=== PATIENT | female | born 1980 | race African-American/Black ===

== ENCOUNTER 2017-05-22 14:06 | Emergency (ER) | payer MEDICAID, OTHER ==
[~2017-05-22] VITALS: Ht 157.5 cm; Wt 82.0 kg
[~2017-05-22 14:06] MED LIST: BACT800T5 PO; NAPR-576 PO
[2017-05-22 14:08] VITALS: BP 135/86; PULSE 82; RESP 16; TEMP 99.3; O2SAT 97
[2017-05-22] MEDS ORDERED: SODIUM CHLORIDE 0.9% FLUSH 10 ML FLUSH IV FLUSH PRN (15:30)
[2017-05-22] MEDS ORDERED: ONDANSETRON HCL 4 MG/2 ML VIAL IVP ONE (15:30)
[2017-05-22] MEDS ORDERED: SODIUM CHLOR 0.9% 1000 ML INJ 1,000 ML IV SCH (15:30)
[2017-05-22] MEDS ORDERED: DICYCLOMINE HCL 20 MG TAB PO ONE (15:30)
[2017-05-22 15:48] VITALS: RESP 16; O2SAT 100
[2017-05-22 16:03] LABS: BLOOD, URINE NEG (NEG); COMMENT (UR) CULT NOT INDICATED; CULTURE IF INDICATED CULT NOT INDICATED; GLUCOSE,URINE NEG (NEG); KETONE, URINE NEG (NEG); NITRITE,URINE NEG (NEG); SQUAMOUS EPITHELIAL CELL URINE 1 /hpf (0-5); URINE COLOR YELLOW (YELLW/STRAW)
[2017-05-22 16:14] LABS: AUTOMATED NEUTROPHIL # 3.8 TH/MM3 (1.8-7.7); BASOPHIL % 0.3 % (0.0-2.0); EOSINOPHIL # 0.1 TH/MM3 (0-0.4); EOSINOPHIL % 1.8 % (0.0-4.0); HEMATOCRIT 39.9 % (35.0-46.0); HEMO FLAGS DIFF FINAL; LYMPH % 38.9 % (9.0-44.0); LYMPHOCYTE # 2.7 TH/MM3 (1.0-4.8); MEAN CELL VOLUME 92.2 FL (80.0-100.0); MEAN CORPUSCULAR HEMOGLOBIN 31.6 PG (27.0-34.0); MEAN CORPUSCULAR HGB CONC 34.3 % (32.0-36.0); MONO % 5.3 % (0.0-8.0); NEUT % 53.7 % (16.0-70.0); PLATELET COUNT 147 TH/MM3 (150-450); RED BLOOD COUNT 4.33 MIL/MM3 (4.00-5.30); RED CELL DISTRIBUTION WIDTH 12.4 % (11.6-17.2); WHITE BLOOD COUNT 7.1 TH/MM3 (4.0-11.0)
[2017-05-22 16:20] LABS: ALKALINE PHOSPHATASE 41 U/L (45-117); ALT (GPT) 24 U/L (10-53); ANION GAP 9 MEQ/L (5-15); AST (GOT) 18 U/L (15-37); BICARBONATE 21.4 MEQ/L (21.0-32.0); BLOOD UREA NITROGEN 10 MG/DL (7-18); CHLORIDE 107 MEQ/L (98-107); GLOMERULAR FILTRATION RATE 123 ML/MIN (>89); POTASSIUM 3.5 MEQ/L (3.5-5.1); SODIUM (NA) 137 MEQ/L (136-145); TOTAL BILIRUBIN ADULT 0.2 MG/DL (0.2-1.0)
[2017-05-22] MEDS ORDERED: SE-NCHW CHEW (16:20)
--- NOTE | 2017-05-22 16:21 | PD ---
HPI Chief Complaint: Abdominal Pain Time Seen by Provider: 15:12 Travel History International Travel<30 days: No Contact w/Intl Traveler<30days: No Traveled to known affect area: No History of Present Illness HPI 36-year-old female complains of dizziness, headache, low back pain, nausea vomiting for the past several days. Symptoms are intermittent. Last menstruation was about 7 weeks prior. She's had no vaginal bleeding or vaginal discharge. Severity moderate. No fever. PFSH Past Medical History Depression: Yes Diabetes: Yes (gestational diabetes ) Diminished Hearing: No Gastrointestinal Disorders: Yes (STS ABD HERNIA) Headaches: Yes Inguinal Hernia: Yes Immunizations Current: Yes ?: Not LMP: 04/05/17 Menopausal: No Past Surgical History Appendectomy: Yes Social History Alcohol Use: Yes Tobacco Use: No (smoked until she found out she was , 3 cig/day for 10 yrs) Substance Use: No Allergies-Medications (Allergen,Severity, Reaction): Coded Allergies: No Known Allergies (Verified , 12/29/15) Reported Meds & Prescriptions Reported Meds & Active Scripts Active Se-Lacho 19 29-1 mg Chew ( Vit W/ Ferrous Fumara Chew) 1 Chew 1 Tab CHEW DAILY Bactrim DS (Sulfamethoxazole-Trimethoprim DS) 1 Tab Tab 1 Tab PO Q12 7 Days Naproxen 500 Mg Tab 500 Mg PO Q12HR PRN Review of Systems Except as stated in HPI: all other systems reviewed are Neg General / Constitutional: No: Fever Gastrointestinal: Positive: Nausea, Vomiting, Abdominal Pain Physical Exam Narrative GENERAL: 36 yo F, WNWD, NAD SKIN: Warm and dry. HEAD: Atraumatic. Normocephalic. EYES: Pupils equal and round. No scleral icterus. No injection or drainage. ENT: No nasal bleeding or discharge. Mucous membranes pink and moist. NECK: Trachea midline. No JVD. CARDIOVASCULAR: Regular rate and rhythm. RESPIRATORY: No accessory muscle use. Clear to auscultation. Breath sounds equal bilaterally. GASTROINTESTINAL: Abdomen soft, non-tender, nondistended. Hepatic and splenic margins not palpable. MUSCULOSKELETAL: Extremities without clubbing, cyanosis, or edema. No obvious deformities. NEUROLOGICAL: Awake and alert. No obvious cranial nerve deficits. Motor grossly within normal limits. Five out of 5 muscle strength in the arms and legs. Normal speech. PSYCHIATRIC: Appropriate mood and affect; insight and judgment normal. Data Data Last Documented VS Vital Signs Date Time Temp Pulse Resp B/P (MAP) Pulse Ox O2 Delivery O2 Flow Rate FiO2 05/22/17 17:19 05/22/17 15:48 16 100 Room Air 05/22/17 14:08 99.3 82 Orders Orders Complete Blood Count With Diff (05/22/17 15:30) Comprehensive Metabolic Panel (05/22/17 15:30) Lipase (05/22/17 15:30) Urinalysis - C+S If Indicated (05/22/17 15:30) Iv Access Insert/Monitor (05/22/17 15:30) Ecg Monitoring (05/22/17 15:30) Oximetry (05/22/17 15:30) Ondansetron Inj (Zofran Inj) (05/22/17 15:30) Sodium Chlor 0.9% 1000 Ml Inj (Ns 1000 M (05/22/17 15:30) Sodium Chloride 0.9% Flush (Ns Flush) (05/22/17 15:30) Ed Urine Pregnancytest Poc (05/22/17 15:30) Dicyclomine (Bentyl) (05/22/17 15:30) Beta Hcg (Quant/Titer) (05/22/17 15:40) Labs Laboratory Tests Test 05/22/17 15:40 White Blood Count 7.1 TH/MM3 Red Blood Count 4.33 MIL/MM3 Hemoglobin 13.7 GM/DL Hematocrit 39.9 % Mean Corpuscular Volume 92.2 FL Mean Corpuscular Hemoglobin 31.6 PG Mean Corpuscular Hemoglobin Concent 34.3 % Red Cell Distribution Width 12.4 % Platelet Count 147 TH/MM3 Mean Platelet Volume 9.1 FL Neutrophils (%) (Auto) 53.7 % Lymphocytes (%) (Auto) 38.9 % Monocytes (%) (Auto) 5.3 % Eosinophils (%) (Auto) 1.8 % Basophils (%) (Auto) 0.3 % Neutrophils # (Auto) 3.8 TH/MM3 Lymphocytes # (Auto) 2.7 TH/MM3 Monocytes # (Auto) 0.4 TH/MM3 Eosinophils # (Auto) 0.1 TH/MM3 Basophils # (Auto) 0.0 TH/MM3 CBC Comment DIFF FINAL Differential Comment Urine Color YELLOW Urine Turbidity CLEAR Urine pH 6.0 Urine Specific [place] 1.025 Urine Protein NEG mg/dL Urine Glucose (UA) NEG mg/dL Urine Ketones NEG mg/dL Urine Occult Blood NEG Urine Nitrite NEG Urine Bilirubin NEG Urine Urobilinogen LESS THAN 2.0 MG/DL Urine Leukocyte Esterase NEG Urine WBC 1 /hpf Urine Squamous Epithelial Cells 1 /hpf Microscopic Urinalysis Comment CULT NOT INDICATED Blood Urea Nitrogen 10 MG/DL Creatinine 0.66 MG/DL Random Glucose 105 MG/DL Total Protein 6.7 GM/DL Albumin 3.6 GM/DL Calcium Level 8.8 MG/DL Alkaline Phosphatase 41 U/L Aspartate Amino Transf (AST/SGOT) 18 U/L Alanine Aminotransferase (ALT/SGPT) 24 U/L Total Bilirubin 0.2 MG/DL Sodium Level 137 MEQ/L Potassium Level 3.5 MEQ/L Chloride Level 107 MEQ/L Carbon Dioxide Level 21.4 MEQ/L Anion Gap 9 MEQ/L Estimat Glomerular Filtration Rate 123 ML/MIN Lipase 146 U/L Human Chorionic Gonadotropin, Quant 2037 MIU/ML [facility] Medical Decision Making Medical Screen Exam Complete: Yes Emergency Medical Condition: Yes Differential Diagnosis IUP, UTI, ectopic , ov torsion, appendicitis, TOA, cervicitis, BV, Trichomoniasis, ov cyst, hernia, mittelschmerz, pain from menstruation Narrative Course CBC & BMP Diagram 05/22/17 15:40 Total Protein 6.7, Albumin 3.6, Calcium Level 8.8, Alkaline Phosphatase 41 L, Aspartate Amino Transf (AST/SGOT) 18, Alanine Aminotransferase (ALT/SGPT) 24, Total Bilirubin 0.2 HCG 2036 UA: No uti Pt has obstetrics follow up Pt ready for discharge Diagnosis Primary Impression: Qualified Codes: Z34.90 - Encounter for supervision of normal , unspecified, unspecified trimester Referrals: Es Skinner MD Med/Other Pt SpecificInfo: Prescription(s) given Scripts Vit W/ Ferrous Fumara Chew (Se-Lacho 19 29-1 mg Chew) 1 Chew 1 TAB CHEW DAILY for Nutritional Supplement, #30 EA 2 Refills Prov: Carlos Alberto Kirk MD 05/22/17 Disposition: 01 DISCHARGE HOME Condition: Stable Carlos Alberto Kirk MD May 22, 2017 16:21
[2017-05-22 16:51] LABS: BETA HCG QUANT 2037 MIU/ML (0-5)
== END 2017-05-22 17:37 | disposition home or self-care (01) ==
LOC: NEPD 14:06
DX: M54.5 Low back pain (principal); R51 Headache; R42 Dizziness and giddiness; F32.9 Major depressive disorder, single episode, unspecified; Z33.1 Pregnant state, incidental
CPT/HCPCS: 80053; 81001; 83690; 84702; 84703; 85025; 96361; 96374; 99284; J2405; J7030

== ENCOUNTER → 2017-08-18 | Outpatient (CLI) | payer MEDICAID, OTHER ==
[~2017-08-18] MED LIST changes: -BACT800T5 PO; -NAPR-576 PO; +SE-NCHW CHEW
== END ==
LOC: HPND 08:24
PROVIDERS: ATTEND Obstetrics & Gynecology
DX: O28.3 Abnormal ultrasonic finding on antenatal screening of mother (principal); O09.522 Supervision of elderly multigravida, second trimester; O24.410 Gestational diabetes mellitus in pregnancy, diet controlled; O99.212 Obesity complicating pregnancy, second trimester; E66.09 Other obesity due to excess calories; Z68.39 Body mass index [BMI] 39.0-39.9, adult
CPT/HCPCS: 76811

== ENCOUNTER 2017-09-01 18:04 | Emergency (ER) | payer MEDICAID ==
[~2017-09-01] VITALS: Ht 157.5 cm; Wt 90.0 kg
[~2017-09-01 18:04] MED LIST changes: +LANCETS1 MI1; +ONETTES4
[2017-09-01 18:06] VITALS: BP 123/80; PULSE 104; RESP 14; TEMP 97.7; O2SAT 99
--- NOTE | 2017-09-01 21:39 | PD ---
Physical Exam Date Seen by Provider: Sep 01, 2017 Time Seen by Provider: 18:49 Narrative 36 year old female presents to the emergency department for evaluation of palpitations. She states she feels like she is having irregular heart beats. She is 20 weeks . She denies any current chest pain. Current pain is 0 /10. Data Data Last Documented VS Vital Signs Date Time Temp Pulse Resp B/P (MAP) Pulse Ox O2 Delivery O2 Flow Rate FiO2 09/01/17 18:06 97.7 104 14 123/80 (94) 99 Orders Orders Basic Metabolic Panel (Bmp) (09/01/17 18:14) Ckmb (Isoenzyme) Profile (09/01/17 18:14) Complete Blood Count With Diff (09/01/17 18:14) Magnesium (Mg) (09/01/17 18:14) Prothrombin Time / Inr (Pt) (09/01/17 18:14) Act Partial Throm Time (Ptt) (09/01/17 18:14) Troponin I (09/01/17 18:14) [facility] Supervised Visit with ALBARO: No Narrative Course 36 year old female presents to the emergency department stating she is having palpitations. Patient is initially seen in triage. Before patient could be placed in a medical bed, she left AMA. Diagnosis Primary Impression: Left against medical advice Disposition: 07 AGAINST MEDICAL ADVICE Katharine Garcia Sep 01, 2017 21:39
== END 2017-09-01 18:49 | disposition left against medical advice (07) ==
LOC: NED 18:04
DX: O26.892 Other specified pregnancy related conditions, second trimester (principal); R00.2 Palpitations; Z3A.20 20 weeks gestation of pregnancy
CPT/HCPCS: 99281

== ENCOUNTER 2017-09-02 07:51 | Emergency (ER) | payer MEDICAID ==
[~2017-09-02] VITALS: Ht 157.5 cm; Wt 90.0 kg
[2017-09-02 07:52] VITALS: BP 134/77; PULSE 94; RESP 16; TEMP 98.8; O2SAT 98
--- NOTE | 2017-09-02 08:58 | PD ---
HPI Chief Complaint: Cardiac Complaint Time Seen by Provider: 08:49 Travel History International Travel<30 days: No Contact w/Intl Traveler<30days: No Traveled to known affect area: No History of Present Illness HPI The patient was seen and examined in the presence of the nurse. This patient complains of feeling an extra heartbeat or skipped beat on occasion. She has some palpitations. She is not having any chest pain or presyncopal symptoms. She is 5 months . Severity is mild. Duration 2 days. No alleviating factors. No exacerbating factors. She has no alcohol or drug abuse or excessive caffeine or decongestant use. PFSH Past Medical History Depression: Yes Diabetes: Yes (gestational diabetes ) Patient Takes Glucophage: No Diminished Hearing: No Gastrointestinal Disorders: Yes (STS ABD HERNIA) Headaches: Yes Inguinal Hernia: Yes Immunizations Current: Yes Tetanus Vaccination: < 5 Years ?: LMP: 03/25 Menopausal: No : 5 Para: 4 Past Surgical History Appendectomy: Yes Social History Alcohol Use: Yes Tobacco Use: No (smoked until she found out she was , 3 cig/day for 10 yrs) Substance Use: No Allergies-Medications (Allergen,Severity, Reaction): Coded Allergies: No Known Allergies (Verified Adverse Reaction, Unknown, 09/02/17) Reported Meds & Prescriptions Reported Meds & Active Scripts Active Lancets 1 Mis Mis Ea .ROUTE DIRECTED Onetouch Ultra Test Strips (Blood Glucose Test Strips) 1 Leda Leda Bottle .XX 4 TIMES DAILY Se- 19 29-1 mg Chew ( Vit W/ Ferrous Fumara Chew) 1 Chew 1 Tab CHEW DAILY 30 Days Review of Systems General / Constitutional: No: Fever Eyes: No: Visual changes HENT: No: Headaches Cardiovascular: Positive: Palpitations, No: Chest Pain or Discomfort Respiratory: No: Shortness of Breath Gastrointestinal: No: Abdominal Pain Genitourinary: No: Dysuria Musculoskeletal: No: Pain Skin: No Rash Neurologic: No: Weakness Psychiatric: No: Depression Endocrine: No: Polydipsia Hematologic/Lymphatic: No: Easy Bruising Physical Exam Narrative GENERAL: Well-nourished, well-developed patient in no apparent distress. SKIN: Focused skin assessment reveals no rash and nodules. Skin is Warm and dry. HEAD: Atraumatic. Normocephalic. EYES: Pupils equal and round. No scleral icterus. No injection or drainage. ENT: No nasal bleeding or discharge. Mucous membranes pink and moist. NECK: Trachea midline. No JVD. CARDIOVASCULAR: Regular rate and rhythm. No murmur appreciated. I listened to her heart for 1 minute and I heard one ectopic beat. RESPIRATORY: No accessory muscle use. Clear to auscultation. Breath sounds equal bilaterally. GASTROINTESTINAL: Abdomen soft, non-tender, nondistended. Hepatic and splenic margins not palpable. MUSCULOSKELETAL: No obvious deformities. No clubbing. No cyanosis. No edema. NEUROLOGICAL: Awake and alert. No obvious cranial nerve deficits. Motor grossly within normal limits. Normal speech. PSYCHIATRIC: Appropriate mood and affect; insight and judgment normal. Data Data Last Documented VS Vital Signs Date Time Temp Pulse Resp B/P (MAP) Pulse Ox O2 Delivery O2 Flow Rate FiO2 09/02/17 08:06 98 18 97 Room Air 09/02/17 07:52 98.8 134/77 (96) Orders Orders Electrocardiogram (09/02/17 ) Basic Metabolic Panel (Bmp) (09/02/17 08:55) Complete Blood Count With Diff (09/02/17 08:55) Magnesium (Mg) (09/02/17 08:55) Ecg Monitoring (09/02/17 08:55) Iv Access Insert/Monitor (09/02/17 08:55) Sodium Chloride 0.9% Flush (Ns Flush) (09/02/17 09:00) Thyroid Stimulating Hormone (09/02/17 08:58) Labs Laboratory Tests Test 09/02/17 09:02 White Blood Count 6.8 TH/MM3 Red Blood Count 4.37 MIL/MM3 Hemoglobin 13.1 GM/DL Hematocrit 38.4 % Mean Corpuscular Volume 87.8 FL Mean Corpuscular Hemoglobin 29.9 PG Mean Corpuscular Hemoglobin Concent 34.1 % Red Cell Distribution Width 12.5 % Platelet Count 131 TH/MM3 Mean Platelet Volume 9.4 FL Neutrophils (%) (Auto) 60.6 % Lymphocytes (%) (Auto) 32.2 % Monocytes (%) (Auto) 4.9 % Eosinophils (%) (Auto) 1.9 % Basophils (%) (Auto) 0.4 % Neutrophils # (Auto) 4.1 TH/MM3 Lymphocytes # (Auto) 2.2 TH/MM3 Monocytes # (Auto) 0.3 TH/MM3 Eosinophils # (Auto) 0.1 TH/MM3 Basophils # (Auto) 0.0 TH/MM3 CBC Comment DIFF FINAL Differential Comment Blood Urea Nitrogen 7 MG/DL Creatinine 0.50 MG/DL Random Glucose 105 MG/DL Calcium Level 9.0 MG/DL Magnesium Level 2.0 MG/DL Sodium Level 139 MEQ/L Potassium Level 3.6 MEQ/L Chloride Level 108 MEQ/L Carbon Dioxide Level 23.4 MEQ/L Anion Gap 8 MEQ/L Estimat Glomerular Filtration Rate 170 ML/MIN Thyroid Stimulating Hormone 3rd Gen 0.967 uIU/ML MDM Medical Decision Making Medical Screen Exam Complete: Yes Emergency Medical Condition: Yes Medical Record Reviewed: Yes Differential Diagnosis PVC, PAC, SVT, anxiety, palpitations Narrative Course I have reviewed the patient's electronic medical record. Patient was here yesterday for the same complaint but left gets medical advice before being seen IV placed Extended cardiac monitoring reveals sinus rhythm with a very rare ectopic beat I reviewed her EKG which shows sinus rhythm with no ectopy CBC is normal Metabolic profile is normal Magnesium is normal TSH is normal No indication for any emergent treatment. She has a rare ectopic beat causing palpitations. Should follow-up with her primary care or OB physician We discussed avoidance of caffeine and decongestants and other cardiac stimulants Diagnosis Primary Impression: Palpitations Additional Impression: Qualified Codes: Z3A.20 - 20 weeks gestation of Additional Instructions: The patient was advised to follow up with their physician and return if they worsen. Med/Other Pt SpecificInfo: Other Disposition: 01 DISCHARGE HOME Condition: Stable Timi Carmichael MD Sep 02, 2017 08:58
[2017-09-02] MEDS ORDERED: SODIUM CHLORIDE 0.9% FLUSH 10 ML FLUSH IVF PRN (09:00)
[2017-09-02 09:36] LABS: AUTOMATED NEUTROPHIL # 4.1 TH/MM3 (1.8-7.7); BASOPHIL % 0.4 % (0.0-2.0); EOSINOPHIL # 0.1 TH/MM3 (0-0.4); EOSINOPHIL % 1.9 % (0.0-4.0); HEMATOCRIT 38.4 % (35.0-46.0); HEMOGLOBIN 13.1 GM/DL (11.6-15.3); LYMPH % 32.2 % (9.0-44.0); LYMPHOCYTE # 2.2 TH/MM3 (1.0-4.8); MEAN CELL VOLUME 87.8 FL (80.0-100.0); MEAN CORPUSCULAR HEMOGLOBIN 29.9 PG (27.0-34.0); MEAN CORPUSCULAR HGB CONC 34.1 % (32.0-36.0); MEAN PLATELET VOLUME 9.4 FL (7.0-11.0); MONO % 4.9 % (0.0-8.0); MONOCYTE # 0.3 TH/MM3 (0-0.9); NEUT % 60.6 % (16.0-70.0); PLATELET COUNT 131 TH/MM3 (150-450); RED BLOOD COUNT 4.37 MIL/MM3 (4.00-5.30); RED CELL DISTRIBUTION WIDTH 12.5 % (11.6-17.2); WHITE BLOOD COUNT 6.8 TH/MM3 (4.0-11.0)
[2017-09-02 09:58] LABS: BICARBONATE 23.4 MEQ/L (21.0-32.0); CREATININE 0.5 MG/DL (0.50-1.00)
--- NOTE | 2017-09-02 23:02 | EKG ---
Date Performed: 09/02/2017 Time Performed: 08:23:09 PTAGE: 36 years EKG: Sinus rhythm NONSPECIFIC T-WAVE ABNORMALITY BORDERLINE ECG PREVIOUS TRACING : 07/26/2013 21.12 Compared to prior tracing, rate has increased DOCTOR: Karthik Kirk Interpretating Date/Time 09/02/2017 23:01:43
== END 2017-09-02 13:45 | disposition home or self-care (01) ==
LOC: NEPC 07:51
DX: O26.892 Other specified pregnancy related conditions, second trimester (principal); R00.2 Palpitations; R94.31 Abnormal electrocardiogram [ECG] [EKG]; O24.912 Unspecified diabetes mellitus in pregnancy, second trimester; O99.342 Other mental disorders complicating pregnancy, second trimester; F32.9 Major depressive disorder, single episode, unspecified; Z87.891 Personal history of nicotine dependence; Z3A.20 20 weeks gestation of pregnancy
CPT/HCPCS: 80048; 83735; 84443; 85025; 93005; 99284

== ENCOUNTER → 2017-09-17 | Outpatient (CLI) | payer MEDICAID | LOC: HPND 07:50 | PROVIDERS: ATTEND Obstetrics & Gynecology | DX: O09.522 Supervision of elderly multigravida, second trimester (principal); Z36.2 Encounter for other antenatal screening follow-up | CPT/HCPCS: 76816 ==

== ENCOUNTER → 2017-10-15 | Outpatient (CLI) | payer MEDICAID | LOC: HPND 08:50 | PROVIDERS: ATTEND Obstetrics & Gynecology | DX: O99.212 Obesity complicating pregnancy, second trimester (principal); O09.522 Supervision of elderly multigravida, second trimester; E66.09 Other obesity due to excess calories; Z68.35 Body mass index [BMI] 35.0-35.9, adult | CPT/HCPCS: 76816 ==

== ENCOUNTER 2017-11-06 08:00 | Emergency (ER) | payer MEDICAID ==
[~2017-11-06] VITALS: Ht 157.5 cm; Wt 90.0 kg
[2017-11-06 08:04] VITALS: BP 119/71; PULSE 101; RESP 15; TEMP 98.3; O2SAT 100
--- NOTE | 2017-11-06 08:23 | PD ---
HPI Chief Complaint: Foreign Body Time Seen by Provider: 08:09 Travel History International Travel<30 days: No Contact w/Intl Traveler<30days: No Traveled to known affect area: No History of Present Illness HPI 37-year-old female presents to the emergency department requesting removal of Q- tip cotton ball that has been stuck in her right ear since this morning. She is 7-1/2 months and has no complaints of abdominal pain, cramping. Denies vaginal bleeding, leaking, discharge. Is only here for foreign body removal of the right ear. Denies pain. Says it is aggravating and she can feel it in her ear. Has not tried to remove it. Symptoms are mild in severity. No known relieving factors. 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 No known allergies. Denies significant past medical history. Has no other medical complaints. No other modifying factors or associated signs and symptoms. PFSH Past Medical History Depression: Yes Diabetes: Yes (gestational diabetes ) Patient Takes Glucophage: No Diminished Hearing: No Gastrointestinal Disorders: Yes (STS ABD HERNIA) Headaches: Yes Inguinal Hernia: Yes Immunizations Current: Yes ?: Menopausal: No : 5 Para: 4 Past Surgical History Appendectomy: Yes Social History Alcohol Use: Yes Tobacco Use: No (smoked until she found out she was , 3 cig/day for 10 yrs) Substance Use: No Allergies-Medications (Allergen,Severity, Reaction): Coded Allergies: No Known Allergies (Verified Adverse Reaction, Unknown, 09/02/17) Reported Meds & Prescriptions Reported Meds & Active Scripts Active Lancets 1 Mis Mis Ea .ROUTE DIRECTED Onetouch Ultra Test Strips (Blood Glucose Test Strips) 1 Leda Leda Bottle .XX 4 TIMES DAILY Se-Lacho 19 29-1 mg Chew ( Vit W/ Ferrous Fumara Chew) 1 Chew 1 Tab CHEW DAILY 30 Days Review of Systems Except as stated in HPI: all other systems reviewed are Neg Physical Exam Narrative GENERAL: Well-nourished, well-developed black female patient, in no acute distress; afebrile, nontoxic-appearing SKIN: Warm and dry. No rash. HEAD: Atraumatic. Normocephalic. EYES: Pupils equal and round. No scleral icterus. No injection or drainage. ENT: Mucosa pink and moist. No erythema or exudates. No uvular edema. No uvular , palatal, or tonsillar deviation. Airway patent. EARS: Bilateral pinnae and external canals appear within normal limits. Right ear was visualized foreign body. After removal I was able to view the tympanic membranes. Bilateral tympanic membranes without erythema, dullness or perforation. NECK: Trachea midline. No lymphadenopathy. CARDIOVASCULAR: Regular rate. RESPIRATORY: No accessory muscle use. GASTROINTESTINAL: . MUSCULOSKELETAL: No obvious deformities. No clubbing. No cyanosis. No edema. NEUROLOGICAL: Awake and alert. Oriented 3. No obvious cranial nerve deficits. Motor grossly within normal limits. Normal speech. Moves all extremities. 5/5 strength to all extremities. PSYCHIATRIC: Appropriate mood and affect; insight and judgment normal. Data Data Last Documented VS Vital Signs Date Time Temp Pulse Resp B/P (MAP) Pulse Ox O2 Delivery O2 Flow Rate FiO2 11/06/17 08:04 98.3 101 15 119/71 (87) 100 Orders Orders Ed Discharge Order (11/06/17 08:23) [facility] Medical Decision Making Medical Screen Exam Complete: Yes Emergency Medical Condition: Yes Medical Record Reviewed: Yes Differential Diagnosis Foreign body of the ear, cerumen impaction, medical clearance Narrative Course 37-year-old female with foreign body in the right ear. Foreign body removed. See my procedure note for foreign body removal. Patient tolerated well. Instructed patient to follow up with primary care provider. Patient verbalizes understanding and agreement with treatment plan. Patient is medically cleared and stable for discharge. Discussed reasons to return to the emergency department. Patient agrees with treatment plan. The patients vital signs are stable and the patient is stable for outpatient follow-up and treatment. Patient discharged home, stable and in no acute distress. Procedures Procedure Narrative Foreign body removal of right ear: A 10 cc of normal saline was used to irrigate the ear and an ear curette was used to successfully remove the foreign body. Patient tolerated well. Diagnosis Primary Impression: Foreign body in right ear Qualified Codes: T16.1XXA - Foreign body in right ear, initial encounter Referrals: Primary Care Physician Patient Instructions: Ear Foreign Body (ED), General Instructions Additional Instructions: Follow-up with primary care provider Return to the emergency department immediately with worsening of symptoms Med/Other Pt SpecificInfo: No Change to Meds, No Meds Exist/No RX given Disposition: DISCHARGE HOME Condition: Stable Loretta Marie [facility] Nov 06, 2017 08:23
== END 2017-11-06 08:35 | disposition home or self-care (01) ==
LOC: NEPD 08:00
DX: T16.1XXA Foreign body in right ear, initial encounter (principal); F32.9 Major depressive disorder, single episode, unspecified; E11.9 Type 2 diabetes mellitus without complications; Z34.93 Encounter for supervision of normal pregnancy, unspecified, third trimester; Z87.891 Personal history of nicotine dependence
CPT/HCPCS: 99283

== ENCOUNTER → 2017-11-12 | Outpatient (CLI) | payer MEDICAID | LOC: HPND 07:47 | PROVIDERS: ATTEND Obstetrics & Gynecology | DX: O09.523 Supervision of elderly multigravida, third trimester (principal); O99.213 Obesity complicating pregnancy, third trimester; E66.09 Other obesity due to excess calories; Z68.34 Body mass index [BMI] 34.0-34.9, adult; O35.1XX0 Maternal care for (suspected) chromosomal abnormality in fetus, not applicable or unspecified | CPT/HCPCS: 76816 ==

== ENCOUNTER 2018-01-14 05:16 | Emergency (ER) | payer MEDICAID ==
--- NOTE | 2018-01-14 07:56 | PD ---
HPI Chief Complaint ctx Date Seen: Jan 14, 2018 Time Seen: 07:50 Travel History International Travel<30 Days: No Contact w/Intl Traveler<30Days: No Known Affected Area: No History of Present Illness HPI Pt is a 37y/o @ 39.4wks. She has PNC at [facility]. She presents this morning for ctx. She states that she started feeling them strong around 3am. Her cervix in clinic this week was 3cm dilated. is c/b: -- grandmultiparity -- h/o GDM x2 -- h/o PTD x1 (36wks) Weeks Gestation: 39 Para: 5 : 6 History Past Medical History Medical History: Denies Significant Hx Obstetric History Obstetric History x5 h/o PTD x1 (36wks) h/o GDM x2 (G4 and 5) Past Surgical History Narrative Surgical wisdom teeth extraction appendectomy Family History Family History: Negative Social History Alcohol Use: No Tobacco Use: No Substance Abuse: No Allergies-Medications (Allergen,Severity, Reaction): Coded Allergies: No Known Allergies (Verified Adverse Reaction, Unknown, 09/02/17) Home Meds Active Scripts Lancets (Lancets) 1 Mis Mis, EA .ROUTE DIRECTED for Blood Sugar Management, # 1 0 Refills Prov:Antonia Martinez CNM [facility] 08/31/17 Onetouch Ultra Test Strips (Onetouch Ultra Test Strips) 1 Leda Leda, BOTTLE .XX 4 times daily for Blood Sugar Management, #1 4 Refills Prov:Neli GarnerP 08/30/17 Vit W/ Ferrous Fumara Chew (Se-Lacho 19 29-1 mg Chew) 1 Chew, 1 TAB CHEW DAILY for Nutritional Supplement for 30 Days, #30 EA 2 Refills Prov:Antonia Martinez CNM [facility] 07/05/17 Review of Systems Except as stated in HPI: all other systems reviewed are Neg Physical Exam Narrative General: well developed, well nourished, no acute distress HEENT: normocephalic atraumatic, extraocular movements intact, neck supple Abdomen: soft, gravid, nontender, nondistended Uterus: fundus nontender Extremities: full range of motion Skin: normal coloration, no rashes, no suspicious skin lesions noted Neurologic: cranial nerves 2-12 grossly intact, normal muscle tone, normal gait Psychiatric: normal mood and affect, appropriate FHTs: 130s, +accels, no decels, moderate variability, reactive [place]: initially irregular ctx, then quiet Cvx: 4/50/-3 Data Data Vital Signs Reviewed: Yes Orders Orders Vital Signs (Adult) .ON ADMISSION (01/14/18 07:49) ^ Labor Status (01/14/18 07:49) ^ Non Stress Test (01/14/18 07:49) Ed Discharge Order (01/14/18 07:49) MDM Plan 37y/o @ 39.4wks with ctx. -- FHTs cat 1 -- toco irregular --> quiet -- cvx 4/50/-3 (unchanged over >2hrs) Dispo: d/c home with precautions; has f/u appt on Wednesday at clinic Diagnosis Diagnosis: Primary Impression: 39 weeks gestation of Additional Impressions: Uterine contractions Grand multipara AMA (advanced maternal age) multigravida 35+ History of delivery Shireen Lawosn MD Jan 14, 2018 07:56
== END 2018-01-14 09:24 | disposition home or self-care (01) ==
LOC: HOBED 05:16
DX: O47.1 False labor at or after 37 completed weeks of gestation (principal); Z3A.39 39 weeks gestation of pregnancy
CPT/HCPCS: 59025; 84112

== ENCOUNTER 2018-01-14 16:15 | Inpatient (IN) | payer MEDICAID ==
[~2018-01-14] VITALS: Ht 157.5 cm; Wt 95.0 kg
--- NOTE | 2018-01-14 16:43 | HHI.HP ---
History & Physical H&P HPI History of Present Illness Date Seen: Jan 14, 2018 Time Seen: 16:50 History of Present Illness HPI Pt is a 37y/o @ 39.4wks. She has PNC at [facility]. She presented earlier this morning for ctx. She states that she started feeling them strong around 3am. She now presents after gush of fluid at around 1545. Describes it as clear, no foul odor. Continues to feel baby move. No vaginal bleeding. Kaley roughly every 20 minutes. is c/b: -- grandmultiparity -- h/o GDM x2 -- h/o PTD x1 (36wks) Weeks Gestation: 39 Para: 5 : 6 History Past Medical History Medical History: Denies Significant Hx Obstetric History Obstetric History x5 h/o PTD x1 (36wks) h/o GDM x2 (G4 and 5) Past Surgical History Narrative Surgical wisdom teeth extraction appendectomy Family History Family History: Negative Social History Alcohol Use: No Tobacco Use: No Substance Abuse: No Allergies-Medications (Allergen,Severity, Reaction): Coded Allergies: No Known Allergies (Verified Adverse Reaction, Unknown, 09/02/17) Home Meds Active Scripts Lancets (Lancets) 1 Mis Mis, EA .ROUTE DIRECTED for Blood Sugar Management, # 1 0 Refills Prov:Antonia Martinez CNM [facility] 08/31/17 Onetouch Ultra Test Strips (Onetouch Ultra Test Strips) 1 Leda Leda, BOTTLE .XX 4 times daily for Blood Sugar Management, #1 4 Refills Prov:Neli Garner 08/30/17 Vit W/ Ferrous Fumara Chew (Se-Lacho 19 29-1 mg Chew) 1 Chew, 1 TAB CHEW DAILY for Nutritional Supplement for 30 Days, #30 EA 2 Refills Prov:Antonia Martinez CNMP 07/05/17 Review of Systems Except as stated in HPI: all other systems reviewed are Neg Physical Exam Narrative General: well developed, well nourished, no acute distress HEENT: normocephalic atraumatic, extraocular movements intact, neck supple Abdomen: soft, gravid, nontender, nondistended Uterus: fundus nontender Extremities: full range of motion Skin: normal coloration, no rashes, no suspicious skin lesions noted Neurologic: cranial nerves 2-12 grossly intact, normal muscle tone, normal gait Psychiatric: normal mood and affect, appropriate FHTs: Cat 1, baseline 140, + accelerations, moderate variability, no decels [place]: 2 contractions in 20 minutes on strip Cvx: posterior, 4-5cm dilation, 50% effaced, -3 station, likely vertex but inconclusive. MDM Plan 37y/o @ 39.4wks with ctx. Now with ROM, Amnisure positive. Will admit for L&D with anticipated . Will treat for GBS+ -- FHTs cat 1 -- toco irregular, a contraction roughly every 10 minutes -- cvx 4-5/50/-3 -- most recent documented ultrasound is in breech presentation. Bedside ultrasound performed and confirmed a vertex position. --GBS +, will start PCN --She does desire an epidural. --Otherwise routine L&D care. Impression: Admit to L&D for routine delivery with PCN for GBS+ status Pepe Arcos MD R1 Jan 14, 2018 16:43
[2018-01-14] MEDS ORDERED: LIDOCAINE HCL 1% 50 ML VIAL I-DERMAL PRN (16:45)
[2018-01-14] MEDS ORDERED: LIDOCAINE HCL 1% 50 ML VIAL INFIL PRN (16:45)
[2018-01-14] MEDS ORDERED: MINERAL OIL 10 ML VIAL TOPICAL PRN (16:45)
[2018-01-14] MEDS ORDERED: OXYTOCIN 30 UNITS-500ML PREMIX 500 ML IV ONE (16:45)
[2018-01-14] MEDS ORDERED: CITRIC ACID-SODIUM CITRATE LIQ 30 ML UDC PO SCH (16:45)
[2018-01-14] MEDS ORDERED: SODIUM CHLORID 0.9% 500 ML INJ 500 ML IV PRN (16:45)
[2018-01-14] MEDS ORDERED: LACTATED RINGER'S 1000 ML INJ 1,000 ML IV PRN (17:00)
[2018-01-14] MEDS ORDERED: LACTATED RINGER'S 1000 ML INJ 1,000 ML IV SCH (17:00)
[2018-01-14] MEDS ORDERED: SODIUM CHLOR 0.9% 1000 ML INJ 1,000 ML IV PRN (17:05)
--- NOTE | 2018-01-14 17:05 | PD ---
History of Present Illness Date Seen: Jan 14, 2018 Time Seen: 16:50 History of Present Illness HPI Pt is a 37y/o @ 39.4wks. She has PNC at [facility]. She presented earlier this morning for ctx. She states that she started feeling them strong around 3am. She now presents after gush of fluid at around 1545. Describes it as clear, no foul odor. Continues to feel baby move. No vaginal bleeding. Kaley roughly every 20 minutes. is c/b: -- grandmultiparity -- h/o GDM x2 -- h/o PTD x1 (36wks) Weeks Gestation: 39 Para: 5 : 6 History Past Medical History Medical History: Denies Significant Hx Obstetric History Obstetric History x5 h/o PTD x1 (36wks) h/o GDM x2 (G4 and 5) Past Surgical History Narrative Surgical wisdom teeth extraction appendectomy Family History Family History: Negative Social History Alcohol Use: No Tobacco Use: No Substance Abuse: No Allergies-Medications (Allergen,Severity, Reaction): Coded Allergies: No Known Allergies (Verified Adverse Reaction, Unknown, 09/02/17) Home Meds Active Scripts Lancets (Lancets) 1 Mis Mis, EA .ROUTE DIRECTED for Blood Sugar Management, # 1 0 Refills Prov:Antonia Martinez CNM [facility] 08/31/17 Onetouch Ultra Test Strips (Onetouch Ultra Test Strips) 1 Leda Leda, BOTTLE .XX 4 times daily for Blood Sugar Management, #1 4 Refills Prov:Neli GarnerP 08/30/17 Vit W/ Ferrous Fumara Chew (Se-Lacho 19 29-1 mg Chew) 1 Chew, 1 TAB CHEW DAILY for Nutritional Supplement for 30 Days, #30 EA 2 Refills Prov:Antonia Martinez CNM [facility] 07/05/17 Review of Systems Except as stated in HPI: all other systems reviewed are Neg Physical Exam Narrative General: well developed, well nourished, no acute distress HEENT: normocephalic atraumatic, extraocular movements intact, neck supple Abdomen: soft, gravid, nontender, nondistended Uterus: fundus nontender Extremities: full range of motion Skin: normal coloration, no rashes, no suspicious skin lesions noted Neurologic: cranial nerves 2-12 grossly intact, normal muscle tone, normal gait Psychiatric: normal mood and affect, appropriate FHTs: Cat 1, baseline 140, + accelerations, moderate variability, no decels [place]: 2 contractions in 20 minutes on strip Cvx: posterior, 4-5cm dilation, 50% effaced, -3 station, likely vertex but inconclusive. MDM Plan 37y/o @ 39.4wks with ctx. Now with ROM, Amnisure positive. Will admit for L&D with anticipated . Will treat for GBS+ -- FHTs cat 1 -- toco irregular, a contraction roughly every 10 minutes -- cvx 4-5/50/-3 -- most recent documented ultrasound is in breech presentation. Bedside ultrasound performed and confirmed a vertex position. --GBS +, will start PCN --She does desire an epidural. --Otherwise routine L&D care. Impression: Admit to L&D for routine delivery with PCN for GBS+ status Pepe Arcos MD R1 Jan 14, 2018 17:05
[2018-01-14] MEDS ORDERED: PENICILLIN G POTASSIUM INJ 5,000,000 UNITS in SODIUM CHLORIDE 0.9% INJ 100 ML IV ONE (17:15)
[2018-01-14 17:32] LABS: AUTOMATED NEUTROPHIL # 5.2 TH/MM3 (1.8-7.7); BASOPHIL % 0.2 % (0.0-2.0); EOSINOPHIL # 0.1 TH/MM3 (0-0.4); HEMATOCRIT 38.3 % (35.0-46.0); LYMPH % 32.8 % (9.0-44.0); MEAN CELL VOLUME 87.4 FL (80.0-100.0); MEAN CORPUSCULAR HEMOGLOBIN 29.6 PG (27.0-34.0); MEAN CORPUSCULAR HGB CONC 33.8 % (32.0-36.0); MEAN PLATELET VOLUME 9.7 FL (7.0-11.0); MONO % 8.5 % (0.0-8.0); MONOCYTE # 0.8 TH/MM3 (0-0.9); NEUT % 57.5 % (16.0-70.0); PLATELET COUNT 113 TH/MM3 (150-450); RED BLOOD COUNT 4.38 MIL/MM3 (4.00-5.30); RED CELL DISTRIBUTION WIDTH 14.6 % (11.6-17.2); WHITE BLOOD COUNT 9.1 TH/MM3 (4.0-11.0)
[2018-01-14 17:38] LABS: BILIRUBIN, URINE NEG (NEG); BLOOD, URINE NEG (NEG); GLUCOSE,URINE NEG (NEG); KETONE, URINE NEG (NEG); NITRITE,URINE NEG (NEG); SQUAMOUS EPITHELIAL CELL URINE 6 /hpf (0-5); URINE COLOR LIGHT-YELLOW (YELLW/STRAW); URINE LEUKOCYTE ESTERASE MOD (NEG)
[2018-01-14] MEDS ORDERED: fentaNYL 2MCG-BUPIV 0.125% INJ 150 ML EPIDURAL ONE (19:55)
[2018-01-14] MEDS ORDERED: LIDOCAINE 1.5%/EPINEPHrine 1:200,000 PF 5 ML AMP ONE (20:12)
[2018-01-14] MEDS ORDERED: PENICILLIN G POTASSIUM INJ 2,500,000 UNITS in SODIUM CHLORIDE 0.9% INJ 100 ML IV SCH (21:15)
--- NOTE | 2018-01-15 00:10 | PD.OB.DELI ---
Weeks gestation: 39 Anesthesia: Epidural Episiotomy: None Vaginal Delivery: Normal Presentation: Occiput anterior Nuchal Cord: None Delayed cord clamping (45 sec): Yes : Female Delivery date: Jan 14, 2018 Delivery time: 23:54 One Minute : 6 Five Minute : 8 Weight: 3635 gm Placenta: Spontaneous delivery, Intact Laceration: No lacerations Estimated blood loss: 200 cc Additional Information baby came out with immediate cry but was having some hypotonia that improved at 5 min cord gas - 7.17 Alex Thacker II, MD Jan 15, 2018 00:10
[2018-01-15] MEDS ORDERED: ONDANSETRON ODT 4 MG TAB PO PRN (00:15)
[2018-01-15] MEDS ORDERED: SODIUM CHLORIDE 0.9% FLUSH 10 ML FLUSH IV FLUSH PRN (00:15)
[2018-01-15] MEDS ORDERED: ACETAMINOPHEN 325 MG TAB PO PRN (00:15)
[2018-01-15] MEDS ORDERED: WITCH HAZEL 50%/GLYCERIN 12.5% 40 PAD JAR TOPICAL PRN (00:15)
[2018-01-15] MEDS ORDERED: BENZOCAINE 20% TOPICAL SPRAY 60 ML CAN TOPICAL PRN (00:15)
[2018-01-15] MEDS ORDERED: oxyCODONE/ACETAMINOPHEN 5 MG/325 MG TAB PO PRN (00:15)
[2018-01-15] MEDS ORDERED: ZOLPIDEM TARTRATE 5 MG TAB PO PRN (00:15)
[2018-01-15] MEDS ORDERED: OXYTOCIN 30 UNITS-500ML PREMIX 500 ML IV SCH (00:15)
[2018-01-15] MEDS ORDERED: ALUMINUM/MAGNESIUM/SIMETH 30 ML CUP PO PRN (00:15)
[2018-01-15] MEDS: IBUPROFEN 800 MG TAB PO PRN ×3 (04:53→22:47)
--- NOTE | 2018-01-15 08:35 | HHI.OB ---
Subjective Post Day: 1 Remarks Patient is a 37-year-old delivered at 39 weeks and 4 days. Patient is day 1 after normal vaginal delivery. Patient's pain is well- controlled. Patient reports eating and drinking without any nausea or vomiting. Patient reports minimal bleeding. Patient has passed gas but no bowel movements. Patient is walking without lower extremity pain or shortness of breath. Patient reports desire for contraception with Depo-Provera shot and formula-feeding. Objective Objective Remarks GENERAL: Well-nourished, well-developed patient. CARDIOVASCULAR: Regular rate and rhythm without murmurs, gallops, or rubs. RESPIRATORY: Breath sounds equal bilaterally. No accessory muscle use. ABDOMEN/GI: Abdomen soft, non-tender. Fundus: Firm, non-tender at umbilicus. GENITOURINARY: Light to moderate bleeding. EXTREMITIES: No cyanosis or edema, non-tender, without signs of DVT. Medications and IVs Current Medications Medications (Trade) Dose Ordered Sig/Melanie Route Start Time Stop Time Status Last Admin Lactated Ringer's 1,000 ml @ 125 mls/hr Q8H IV 01/14/18 17:00 01/14/18 17:33 Lactated Ringer's 1,000 ml @ 3,000 mls/hr Q20M PRN IV 01/14/18 17:00 Sodium Chloride 500 ml @ 1,000 mls/hr ONCE PRN IV 01/14/18 16:45 01/15/18 16:44 Sodium Chloride 1,000 ml @ 100 mls/hr Q10H PRN IV 01/14/18 17:05 (Xylocaine 1% Inj (50 ml)) 0.1 ml UNSCH X1 PRN I-DERMAL 01/14/18 16:45 01/17/18 16:44 (Bicitra Liq) 30 ml CLINICAL STAFF ANESTHESIOLOGIST PO 01/14/18 16:45 01/18/18 16:44 (fentaNYL INJ) 50 mcg Q1H PRN IV PUSH 01/14/18 16:45 (fentaNYL INJ) 100 mcg Q1H PRN IV PUSH 01/14/18 16:45 Penicillin G Potassium 2610177 units/Sodium Chloride 100 ml @ 200 mls/hr Q4H IV 01/14/18 21:15 01/14/18 22:27 (Xylocaine 1% Inj (50 ml)) 10 ml UNSCH X1 PRN INFIL 01/14/18 16:45 01/16/18 16:44 (Muri-Lube Oil) 10 ml UNSCH PRN TOPICAL 01/14/18 16:45 (NS Flush) 2 ml BID IV FLUSH 01/15/18 09:00 (NS Flush) 2 ml UNSCH PRN IV FLUSH 01/15/18 00:15 (Tylenol) 650 mg Q4H PRN PO 01/15/18 00:15 (Motrin) 800 mg Q8H PRN PO 01/15/18 00:15 01/15/18 04:53 (Percocet 5-325 Mg) 1 tab Q4H PRN PO 01/15/18 00:15 01/15/18 04:53 (Americaine 20% Top Spr) 1 spray Q4H PRN TOPICAL 01/15/18 00:15 (Tucks Pads) 1 applic QID PRN TOPICAL 01/15/18 00:15 (Celeste-Colace) 2 tab Q12H PRN PO 01/15/18 00:15 (Ambien) 5 mg HS PRN PO 01/15/18 00:15 (M-M-R Ii Inj) 0.5 ml ONCE ONCE SQ 01/15/18 16:00 01/15/18 16:01 (Boostrix Inj) 0.5 ml ONCE ONCE IM 01/15/18 16:00 01/15/18 16:01 (Mag-Al Plus Susp Liq) 15 ml Q8H PRN PO 01/15/18 00:15 (Zofran Odt) 4 mg Q6H PRN PO 01/15/18 00:15 Assessment/Plan Problem List: (1) (spontaneous vaginal delivery) ICD Codes: O80 - (spontaneous vaginal delivery) Status: Acute Assessment and Plan Patient is a 37-year-old delivered at 39 weeks and 4 days. Patient is day 1 after normal vaginal delivery. Patient was counseled to do 6 weeks of pelvic rest. Patient was counseled to follow up in 6 weeks. Patient requested follow-up and contraception with Depo shot. --AF VSS --Continue routine care --Motrin and Percocet when necessary for pain --Encourage OOB --Pelvic rest for 6 weeks will need follow-up appointment at that time. --Contraception: Depo shot --Anticipate discharge tomorrow D/w Dr. Thacker. Discharge Planning Likely discharge tomorrow Kd Guzman MD R2 Jan 15, 2018 08:35
[2018-01-15] MEDS ORDERED: medroxyPROGESTERone ACETATE SUSP 150 MG/ML SYRINGE IM ONE ×2 (08:45→21:00)
[2018-01-15] MEDS ORDERED: SODIUM CHLORIDE 0.9% FLUSH 10 ML FLUSH IV FLUSH SCH (09:00)
[2018-01-15] MEDS: DOCUSATE SODIUM 50 MG/SENNA 8.6 MG TAB PO PRN ×2 (09:27→22:46)
[2018-01-15] MEDS: oxyCODONE/ACETAMINOPHEN 5 MG/325 MG TAB PO PRN ×4 (09:51→22:47)
[2018-01-15] MEDS ORDERED: MEASLES, MUMPS, RUBELLA VACCINE 0.5 ML VIAL SQ ONE (16:00)
[2018-01-15] MEDS ORDERED: DIPHTH/TETANUS/ACEL PERTUSSIS (BOOSTER) 0.5 ML VIAL/PFS IM ONE ×2 (16:00→21:00)
[2018-01-15 20:12] VITALS: BP 142/92; PULSE 76; RESP 20; TEMP 98.1
--- NOTE | 2018-01-16 07:20 | HHI.OB ---
Subjective Post Day: 2 Remarks Patient is a 37-year-old delivered at 39 weeks and 4 days. Patient is day 2 after normal vaginal delivery. Patient's pain is well- controlled. Patient reports eating and drinking without any nausea or vomiting. Patient reports minimal bleeding. Patient has passed gas and bowel movements. Patient is walking without lower extremity pain or shortness of breath. Patient reports desire for contraception with Depo-Provera shot and formula-feeding. Patient c/o sinus congestion. Objective Vitals/I&O Vital Signs Date Time Temp Pulse Resp B/P (MAP) Pulse Ox O2 Delivery O2 Flow Rate FiO2 01/15/18 20:12 98.1 76 20 142/92 (109) Objective Remarks GENERAL: Well-nourished, well-developed patient. CARDIOVASCULAR: Regular rate and rhythm without murmurs, gallops, or rubs. RESPIRATORY: Breath sounds equal bilaterally. No accessory muscle use. ABDOMEN/GI: Abdomen soft, non-tender. Fundus: Firm, non-tender at umbilicus. GENITOURINARY: Light to moderate bleeding. EXTREMITIES: No cyanosis or edema, non-tender, without signs of DVT. Medications and IVs Current Medications Medications (Trade) Dose Ordered Sig/Melanie Route Start Time Stop Time Status Last Admin (NS Flush) 2 ml BID IV FLUSH 01/15/18 09:00 (NS Flush) 2 ml UNSCH PRN IV FLUSH 01/15/18 00:15 (Tylenol) 650 mg Q4H PRN PO 01/15/18 00:15 (Motrin) 800 mg Q8H PRN PO 01/15/18 00:15 01/15/18 22:47 (Percocet 5-325 Mg) 1 tab Q4H PRN PO 01/15/18 00:15 01/15/18 04:53 (Americaine 20% Top Spr) 1 spray Q4H PRN TOPICAL 01/15/18 00:15 (Tucks Pads) 1 applic QID PRN TOPICAL 01/15/18 00:15 (Celeste-Colace) 2 tab Q12H PRN PO 01/15/18 00:15 01/15/18 22:46 (Ambien) 5 mg HS PRN PO 01/15/18 00:15 (Mag-Al Plus Susp Liq) 15 ml Q8H PRN PO 01/15/18 00:15 (Zofran Odt) 4 mg Q6H PRN PO 01/15/18 00:15 (Percocet 5-325 Mg) 2 tab Q4H PRN PO 01/15/18 09:30 01/15/18 22:47 Assessment/Plan Problem List: (1) (spontaneous vaginal delivery) ICD Codes: O80 - (spontaneous vaginal delivery) Status: Acute Assessment and Plan Patient is a 37-year-old delivered at 39 weeks and 4 days. Patient is day 2 after normal vaginal delivery. Patient was counseled to do 6 weeks of pelvic rest. Patient was counseled to follow up in 6 weeks. Patient requested follow-up and contraception with Depo shot. 1. --AF VSS --Continue routine care --Motrin and Percocet when necessary for pain --Encourage OOB --Pelvic rest for 6 weeks will need follow-up appointment at that time. --Contraception: Depo shot --Anticipate discharge today 2. sinus congestion. -Flonase nasal spray -cetirizine po D/w Dr. Olea Discharge Planning Likely discharge today Kd Guzman MD R2 Jan 16, 2018 07:20
[2018-01-16] MEDS ORDERED: FLUT50SP EACH NARE (07:24)
[2018-01-16] MEDS ORDERED: IBUP1TAB7 PO (07:24)
[2018-01-16] MEDS ORDERED: CETI10 PO (07:24)
--- NOTE | 2018-01-16 07:24 | HHI.DCPOC ---
Discharge Care Plan Diagnosis: (1) (spontaneous vaginal delivery) Report Symptoms to Your Doctor -Temperature above 100.5 degrees -Redness, of incision or excessive or foul smelling drainage -Unusual pain or calf pain -Increased vaginal bleeding -Painful or difficulty urinating -Feelings of extreme sadness or anxiety after 2 weeks Goals to Promote Your Health * To maintain your health at the optimal level, please follow up with your doctor. Directions to Meet Your Goals Take your medications as prescribed Follow your dietary instruction Follow activity as directed Ensure plenty of rest for recovery Drink fluids for hydration Keep your appointments as scheduled Take your immunizations and boosters as scheduled If your symptoms worsen call your PCP, if no PCP go to Urgent Care Center or Emergency Room Smoking is Dangerous to Your Health. Avoid second hand smoke Call the 24-hour crisis hotline for domestic abuse at Kd Guzman MD R2 Jan 16, 2018 07:24
[2018-01-16] MEDS ORDERED: FLUTICASONE PROPIONATE 50 MCG/ACT 16 GM NASAL SPRAY EACH NARE SCH (09:00)
[2018-01-16] MEDS ORDERED: CETIRIZINE HCL 10 MG TAB PO SCH (09:00)
[2018-01-16] MEDS: oxyCODONE/ACETAMINOPHEN 5 MG/325 MG TAB PO PRN (09:37)
[2018-01-16] MEDS: IBUPROFEN 800 MG TAB PO PRN (09:38)
== END 2018-01-16 13:48 | disposition home or self-care (01) | DRG 774 ==
LOC: HOBED 16:15 → H2EA 16:41 → H1EA 01-15 02:48
PROVIDERS: ADMIT Obstetrics & Gynecology Maternal & Fetal Medicine; ATTEND Obstetrics & Gynecology Maternal & Fetal Medicine
PROC: 3E0R3BZ Introduction of Anesthetic Agent into Spinal Canal, Percutaneous Approach (ICD-10-PCS; 2018-01-14)
PROC: 00HU33Z Insertion of Infusion Device into Spinal Canal, Percutaneous Approach (ICD-10-PCS; 2018-01-14)
PROC: 10E0XZZ Delivery of Products of Conception, External Approach (ICD-10-PCS; principal; 2018-01-15)
DX: O42.02 Full-term premature rupture of membranes, onset of labor within 24 hours of rupture (principal); O99.824 Streptococcus B carrier state complicating childbirth; O90.89 Other complications of the puerperium, not elsewhere classified; R09.81 Nasal congestion; Z37.0 Single live birth; Z3A.39 39 weeks gestation of pregnancy; Z86.32 Personal history of gestational diabetes
CPT/HCPCS: 59025; 80307; 81001; 82805; 84112; 85025; 90715; J1050; J2540; J7120